=== PATIENT | male | born 1995 | race Caucasian/White ===

== ENCOUNTER 2025-02-08 05:24 | Emergency (ER) | payer OTHER ==
[~2025-02-08] VITALS: Ht 177.8 cm; Wt 145.1 kg
[2025-02-08] MEDS ORDERED: ACETAMINOPHEN 325 MG TABLET ONE (07:00)
[2025-02-08] MEDS: ACETAMINOPHEN 325 MG TABLET PO ONE (07:03)
[2025-02-08] MEDS ORDERED: MUPI22OI2 TP (07:05)
[2025-02-08] MEDS ORDERED: KETOROLAC TROMETHAMINE INJ 30 MG/ML VIAL ONE (07:26)
[2025-02-08] MEDS: KETOROLAC TROMETHAMINE INJ 30 MG/ML VIAL IM ONE (07:30)
[2025-02-08 07:34] VITALS: BP 140/90; TEMP 98; O2SAT 98
== END 2025-02-08 07:35 | disposition home or self-care (01) ==
LOC: ER 05:42
DX: K62.89 Other specified diseases of anus and rectum (principal); E66.9 Obesity, unspecified; Z88.0 Allergy status to penicillin
CPT/HCPCS: 99283; 96372; J1885